=== PATIENT | female | born 1990 | race Caucasian/White ===

== ENCOUNTER 2017-11-06 14:23 | Emergency (ER) | payer MEDICAID ==
[~2017-11-06] VITALS: Ht 170.2 cm; Wt 97.7 kg
[2017-11-06 14:25] VITALS: BP 130/74; TEMP 98.2
[2017-11-06 15:26] VITALS: PULSE 101
== END 2017-11-06 15:26 | disposition home or self-care (01) ==
LOC: COL.ER 14:23
DX: G43.909 Migraine, unspecified, not intractable, without status migrainosus (principal); G93.2 Benign intracranial hypertension
CPT/HCPCS: J1170; J2550